=== PATIENT | female | born 1965 | race Caucasian/White ===

== ENCOUNTER 2021-01-08 08:58 | Day surgery (SDC) | payer OTHER | END 2021-01-08 16:50 | disposition home or self-care (01) | LOC: CIR.AMB 08:58 | PROVIDERS: ATTEND Obstetrics & Gynecology | DX: D06.0 Carcinoma in situ of endocervix (principal); N72 Inflammatory disease of cervix uteri; Z20.822 Contact with and (suspected) exposure to COVID-19 ==